=== PATIENT | female | born 1995 | race Caucasian/White ===

== ENCOUNTER 2021-06-25 15:05 | Emergency (ER) | payer OTHER ==
[~2021-06-25 15:05] MED LIST: ALBUTEROL0.63 MG/3 INH; BACTROBAN OINT22 GM EXT; CLEOCIN HCL300 MG PO; DELSYM30 MG/5 ML PO; DOXYCYCLINE MO100 MG PO; FLAGYL500 MG PO; FLONASE 0.05% N16 GM; IBUPROFEN600 MG PO; IBUPROFEN800 MG PO; KEFLEX CAP 500500 MG PO; LODINE CAP 300300 MG PO; NORCO 5-325 TA1 EACH PO; PREDNISONE 50 M50 MG PO; ZITHROMAX250 MG PO; ZOFRAN ODT 4 MG4 MG PO; ZOFRAN ODT 4 MG4 MG SL; ZOFRAN4 MG PO
[2021-06-25 16:56] LABS: HEMOGLOBIN 13.6 gm/dl (12.3-15.3); RED BLOOD COUNT 4.93 M/UL (4.00-5.10); WHITE BLOOD COUNT 7.1 K/UL (4.5-11.0)
[2021-06-25 17:21] LABS: BUN/CREATININE RATIO 20 (0-10)
== END 2021-06-25 19:10 | disposition home or self-care (01) ==
LOC: ER1 15:05
PROVIDERS: Physician Assistant Medical
DX: R07.9 Chest pain, unspecified (principal); R00.2 Palpitations; J45.909 Unspecified asthma, uncomplicated; Z88.0 Allergy status to penicillin; Z88.8 Allergy status to other drugs, medicaments and biological substances
CPT/HCPCS: 71045; 80053; 81001; 82550; 82553; 83874; 84484; 85025; 93005; 99285

== ENCOUNTER → 2022-04-10 | Outpatient (CLI) | payer OTHER | LOC: HEART 5 03-11 14:00 | DX: R55 Syncope and collapse (principal); R00.0 Tachycardia, unspecified ==